=== PATIENT | female | born 1935 | race Caucasian/White ===

== ENCOUNTER 2022-09-08 17:16 | Inpatient (IN) | payer MEDICARE ==
[~2022-09-08] VITALS: Ht 170.2 cm; Wt 66.4 kg
[2022-09-08] MEDS ORDERED: FAMOTIDINE (10MG/ML) 2ML VL IV ONE (18:00)
[2022-09-08] MEDS ORDERED: ASPirin-EC 325mg tab PO ONE (18:00)
[2022-09-08] MEDS ORDERED: ALBUTEROL SULF 2.5 MG/0.5ML(0.5%) NEB SOLN NEB ONE (18:00)
[2022-09-08 18:20] LABS: Basophils # (auto) 0 10 ^3/uL (0-0.2); Basophils % (auto) 0.7 % (0.0-2.0); Eosinophils # (auto) 0.6 10 ^3/uL (0-0.8); Eosinophils % (auto) 9.4 % (0.0-7.0); Hematocrit 37.1 % (36.0-46.0); Hemoglobin 12.1 g/dL (12.2-16.2); Lymphocytes # (auto) 1.9 10 ^3/uL (0.4-5.4); Lymphocytes % (auto) 29.5 % (10.0-50.0); Mean Corpuscular Hemoglobin 30.6 pg (28.0-32.0); Mean Corpuscular Hgb Conc. 32.5 g/dL (32.0-36.0); Mean Corpuscular Volume 94.2 fL (80.0-100.0); Monocytes # (auto) 0.5 10 ^3/uL (0-1.3); Monocytes % (auto) 8.2 % (0.0-12.0); Neutrophils # (auto) 3.4 10 ^3/uL (1.6-8.6); Neutrophils % (auto) 52.2 % (37.0-80.0); Nucleated Red Blood Cells % 0.1 %; Red Blood Cells 3.94 10^6/uL (4.0-5.20); Red Cell Distribution Width 14.3 % (11.8-14.3); White Blood Cell 6.4 10^3/uL (4.4-10.8)
[2022-09-08 18:39] LABS: Albumin 3.2 g/dL (3.4-5.0); BUN/Creatinine Ratio 17.8; Calcium 8.9 mg/dL (8.5-10.1); Magnesium 2.3 mg/dL (1.6-2.6); Potassium 4.2 mmol/L (3.5-5.1)
[2022-09-08 18:43] LABS: Bilirubin, Total 0.2 mg/dL (0.2-1.0); Total Protein 6.8 g/dL (6.4-8.2)
[2022-09-08] MEDS ORDERED: ONDANSETRON HCL 4 MG/2 ML VIAL IV PRN (21:15)
[2022-09-08] MEDS ORDERED: ACETAMINOPHEN 325 MG TAB PO PRN (21:15)
[2022-09-08] MEDS ORDERED: MORPHINE SULFATE INJ 2 MG/ml SYRG IV PRN (21:45)
[2022-09-08] MEDS ORDERED: NITROGLYCERIN 0.4 MG SL TAB SL PRN (21:45)
[2022-09-08] MEDS ORDERED: ALBUTEROL SULF HFA 90MCG INH 200DOSE IN SCH (22:00)
[2022-09-08] MEDS: SODIUM CHLOR 0.9% PF (SALINE LOCK) 10ML VIAL/SYR IV SCH (22:19)
[2022-09-08] MEDS: HYDROcodone-ACET 5/325MG TAB PO PRN (22:24)
[2022-09-08 23:18] LABS: Urine Bacteria MANY /hpf (None Seen); Urine Blood TRACE /uL (Negative); Urine WBC 2 /hpf (0 - 5)
[2022-09-09] MEDS ORDERED: ALBUTEROL SULF 2.5 MG/0.5ML(0.5%) NEB SOLN NEB PRN (00:30)
[2022-09-09 00:39] VITALS: BP 106/49
[2022-09-09] MEDS: SODIUM CHLOR 0.9% PF (SALINE LOCK) 10ML VIAL/SYR IV SCH ×3 (06:14→22:00)
[2022-09-09] MEDS: LEVOTHYROXINE SODIUM 25 MCG TAB PO SCH (06:48)
[2022-09-09 07:32] LABS: Basophils # (auto) 0.1 10 ^3/uL (0-0.2); Basophils % (auto) 1.3 % (0.0-2.0); Eosinophils # (auto) 0.6 10 ^3/uL (0-0.8); Eosinophils % (auto) 12.2 % (0.0-7.0); Hematocrit 35.3 % (36.0-46.0); Hemoglobin 11.7 g/dL (12.2-16.2); Lymphocytes # (auto) 1.7 10 ^3/uL (0.4-5.4); Lymphocytes % (auto) 31.5 % (10.0-50.0); Mean Corpuscular Hemoglobin 31.1 pg (28.0-32.0); Mean Corpuscular Hgb Conc. 33.3 g/dL (32.0-36.0); Mean Corpuscular Volume 93.5 fL (80.0-100.0); Monocytes # (auto) 0.4 10 ^3/uL (0-1.3); Monocytes % (auto) 8.3 % (0.0-12.0); Neutrophils # (auto) 2.5 10 ^3/uL (1.6-8.6); Neutrophils % (auto) 46.7 % (37.0-80.0); Red Blood Cells 3.77 10^6/uL (4.0-5.20); Red Cell Distribution Width 14.2 % (11.8-14.3); White Blood Cell 5.3 10^3/uL (4.4-10.8)
[2022-09-09 07:52] LABS: Albumin 2.9 g/dL (3.4-5.0); BUN/Creatinine Ratio 20.1; Calcium 9.1 mg/dL (8.5-10.1); Potassium 4.5 mmol/L (3.5-5.1)
[2022-09-09 07:57] LABS: Bilirubin, Total 0.4 mg/dL (0.2-1.0); Total Protein 6.8 g/dL (6.4-8.2)
[2022-09-09] MEDS: FAMOTIDINE (10MG/ML) 2ML VL IV SCH (09:41)
[2022-09-09] MEDS ORDERED: ASPirin 81 mg TAB PO SCH (10:00)
[2022-09-09] MEDS ORDERED: ASPirin 81 mg TAB PO ONE (10:30)
[2022-09-09 11:06] LABS: Cholesterol 174 mg/dL (< 200); HDL Cholesterol 75 mg/dL (40-59); LDL Cholesterol 99 mg/dL (< 100); Triglycerides 66 mg/dL (< 150)
[2022-09-09] MEDS ORDERED: LEV75T PO (16:31)
[2022-09-09] MEDS ORDERED: ALBU108A5 PO (16:31)
[2022-09-09 17:00] VITALS: BP 156/74
[2022-09-09 22:00] VITALS: BP 130/59
[2022-09-10 05:20] VITALS: BP 109/56
[2022-09-10] MEDS: LEVOTHYROXINE SODIUM 25 MCG TAB PO SCH (06:27)
[2022-09-10] MEDS: SODIUM CHLOR 0.9% PF (SALINE LOCK) 10ML VIAL/SYR IV SCH ×3 (06:27→22:00)
[2022-09-10] MEDS: FAMOTIDINE (10MG/ML) 2ML VL IV SCH (08:51)
[2022-09-10] MEDS: ASPirin 81 mg TAB PO SCH (08:51)
[2022-09-10 09:19] VITALS: BP 128/66
[2022-09-10] MEDS ORDERED: cefTRIAXone 1GM/50ML D5W 50 ML IV ONE (11:00)
[2022-09-10] MEDS: methylPREDNISolone SOD SUCC 125 MG/2 ML VL IV SCH ×2 (13:43→22:00)
[2022-09-10 13:48] VITALS: BP 148/74
[2022-09-10 16:57] VITALS: BP 138/69
[2022-09-10] MEDS: DOCUSATE SOD 100 MG CAP PO PRN (18:17)
[2022-09-10 22:28] VITALS: BP 109/61
[2022-09-11] VITALS (8 sets, daily range): BP systolic 121–155; BP diastolic 66–82
[2022-09-11] MEDS: LEVOTHYROXINE SODIUM 25 MCG TAB PO SCH (06:32)
[2022-09-11] MEDS: SODIUM CHLOR 0.9% PF (SALINE LOCK) 10ML VIAL/SYR IV SCH ×3 (06:32→21:50)
[2022-09-11] MEDS: methylPREDNISolone SOD SUCC 125 MG/2 ML VL IV SCH ×3 (06:32→21:49)
[2022-09-11] MEDS: DOCUSATE SOD 100 MG CAP PO PRN ×2 (06:33→15:46)
[2022-09-11] MEDS: ASPirin 81 mg TAB PO SCH (08:40)
[2022-09-11] MEDS: cefTRIAXone 1GM/50ML D5W 50 ML IV SCH (08:40)
[2022-09-11] MEDS: FAMOTIDINE (10MG/ML) 2ML VL IV SCH (08:40)
[2022-09-11] MEDS ORDERED: cloNIDine HCL 0.1 MG TAB PO PRN (11:30)
[2022-09-12] MEDS: HYDROcodone-ACET 5/325MG TAB PO PRN (04:40)
[2022-09-12 05:00] VITALS: BP 120/67
[2022-09-12] MEDS: LEVOTHYROXINE SODIUM 25 MCG TAB PO SCH (06:07)
[2022-09-12] MEDS: methylPREDNISolone SOD SUCC 125 MG/2 ML VL IV SCH ×3 (06:07→22:01)
[2022-09-12] MEDS: SODIUM CHLOR 0.9% PF (SALINE LOCK) 10ML VIAL/SYR IV SCH ×3 (06:19→22:02)
[2022-09-12 09:00] VITALS: BP 116/68
[2022-09-12] MEDS ORDERED: ADENOSINE 56 MG in GIVE UN-DILUTED 0 ML IV STA (09:29)
[2022-09-12 09:31] VITALS: BP 127/78
[2022-09-12] MEDS ORDERED: AZIT500T66 PO (11:32)
[2022-09-12] MEDS ORDERED: METH4PAK PO (11:32)
[2022-09-12] MEDS ORDERED: ALBUAER3 IN (11:32)
[2022-09-12] MEDS: ASPirin 81 mg TAB PO SCH (11:43)
[2022-09-12] MEDS: cefTRIAXone 1GM/50ML D5W 50 ML IV SCH (11:43)
[2022-09-12] MEDS: FAMOTIDINE (10MG/ML) 2ML VL IV SCH (11:43)
[2022-09-12 13:00] VITALS: BP 143/82
[2022-09-12 16:59] VITALS: BP 156/67
[2022-09-12 22:00] VITALS: BP 95/62
[2022-09-13 05:00] VITALS: BP 124/63
[2022-09-13] MEDS: methylPREDNISolone SOD SUCC 125 MG/2 ML VL IV SCH (06:16)
[2022-09-13] MEDS: LEVOTHYROXINE SODIUM 25 MCG TAB PO SCH (06:16)
[2022-09-13] MEDS: SODIUM CHLOR 0.9% PF (SALINE LOCK) 10ML VIAL/SYR IV SCH (06:17)
[2022-09-13 09:00] VITALS: BP 148/77
[2022-09-13] MEDS: FAMOTIDINE (10MG/ML) 2ML VL IV SCH (09:50)
[2022-09-13] MEDS: cefTRIAXone 1GM/50ML D5W 50 ML IV SCH (09:50)
[2022-09-13] MEDS: ASPirin 81 mg TAB PO SCH (09:50)
== END 2022-09-13 11:15 | disposition home or self-care (01) | DRG 189 ==
LOC: EDBD 17:16 → ER 17:16 → TELE 21:37 → TELE-EAST 09-09 15:40
PROVIDERS: ADMIT Nurse Practitioner Family; ATTEND Family Medicine
DX: J96.01 Acute respiratory failure with hypoxia (principal); N17.9 Acute kidney failure, unspecified; J44.1 Chronic obstructive pulmonary disease with (acute) exacerbation; E88.09 Other disorders of plasma-protein metabolism, not elsewhere classified; Z20.822 Contact with and (suspected) exposure to COVID-19; E03.9 Hypothyroidism, unspecified; I10 Essential (primary) hypertension
CPT/HCPCS: 36415; 71045; 78452; 80053; 80061; 81001; 83735; 83880; 84100; 84443; 84484; 85025; 85379; 87426; 87804; 93005; 93017; 93306; 94640; 96374; G0378; J0153; J0696; J3490